=== PATIENT | female | born 1980 | race Caucasian/White ===

== ENCOUNTER 2017-02-25 12:05 | Emergency (ER) | payer SELFPAY ==
[2017-02-25] VITALS (9 sets, daily range): BP systolic 100–137; BP diastolic 55–77; PULSE 68–125; RESP 14–22; TEMP 98.6; O2SAT 85–100
[2017-02-25] MEDS ORDERED: HALOPERIDOL LACTATE 5 MG/ML AMP ONE (12:11)
[2017-02-25] MEDS ORDERED: MIDAZOLAM HCL 5 MG/ML VIAL (1 ML) ONE (12:11)
[2017-02-25] MEDS ORDERED: GABA300C5 PO (12:20)
[2017-02-25] MEDS ORDERED: GABA600T PO (12:20)
--- NOTE | 2017-02-25 12:43 | PD ---
HPI Chief Complaint: OD/ Ingestion Time Seen by Provider: 12:20 Travel History International Travel<30 days: No Contact w/Intl Traveler<30days: No Traveled to known affect area: No History of Present Illness HPI 37yo F with PMH of schizophrenia and bipolar disorder presents to the ED with bizarre behavior. Pt is combative and stating something about brittney and not really making sense. As per EVAC, pt was with a friend and was at [facility] and has been acting bizarre for 3 days. However, pt's friend is not here or seemed reliable. Pt has no signs of trauma. She is moving all extremities. Pt was a threat to others and herself so versed 4mg and haldol 5mg IV given. Pt immediately placed on athletic monitor and end tidal CO2. Pt actually started answering my questions after getting medication and knows her name, where she is and what year it is. Admits to history of schizophrenia and bipolar. States she did not use any drugs and has no complaints. PFSH Past Medical History Medical History: Unable to Obtain Bipolar Disorder: Yes Schizophrenia: Yes Influenza Vaccination: No (uto) ?: Unknown Past Surgical History Surgical History: Unable to Obtain Social History Alcohol Use: Yes Tobacco Use: Yes Substance Use: Yes Allergies-Medications (Allergen,Severity, Reaction): Coded Allergies: No Known Allergies (Unverified , 02/25/17) Reported Meds & Prescriptions Reported Meds & Active Scripts Active Reported Tegretol (Carbamazepine) 200 Mg Tab Unknown Dose PO BID Gabapentin 600 Mg Tab 600 Mg PO HS Gabapentin 300 Mg Cap 300 Mg PO DAILY Review of Systems Except as stated in HPI: all other systems reviewed are Neg Physical Exam Narrative GENERAL: 37yo F combative. SKIN: Focused skin assessment warm/dry. HEAD: Atraumatic. Normocephalic. EYES: Pupils equal and round at 4mm bilaterally. No scleral icterus. No injection or drainage. ENT: No nasal bleeding or discharge. Mucous membranes pink and moist. NECK: Trachea midline. No JVD. CARDIOVASCULAR: Regular rate and rhythm. No murmur appreciated. RESPIRATORY: No accessory muscle use. Clear to auscultation. Breath sounds equal bilaterally. GASTROINTESTINAL: Abdomen soft, non-tender, nondistended. MUSCULOSKELETAL: No obvious deformities. No clubbing. No cyanosis. No edema. NEUROLOGICAL: Awake and alert. No obvious cranial nerve deficits. Motor grossly within normal limits. Normal speech. PSYCHIATRIC: Inappropriate mood and affect; poor insight and judgment. Data Data Last Documented VS Vital Signs Date Time Temp Pulse Resp B/P (MAP) Pulse Ox O2 Delivery O2 Flow Rate FiO2 02/26/17 02:31 91 18 127/61 (83) 98 02/25/17 18:01 Room Air 02/25/17 13:13 1.00 02/25/17 12:10 98.6 Orders Orders Haloperidol Inj (Haldol Inj) (02/25/17 12:11) Midazolam Inj (Versed Inj) (02/25/17 12:11) Ct Brain W/O Iv Contrast(Rout) (02/25/17 ) Complete Blood Count With Diff (02/25/17 12:20) Basic Metabolic Panel (Bmp) (02/25/17 12:20) Bhcg Screen Qualitative (02/25/17 12:20) Tylenol (Acetaminophen) (02/25/17 12:20) Salicylates (Aspirin) (02/25/17 12:20) Psych Screen (02/25/17 12:20) Drug Screen, Random Urine (02/25/17 12:20) Alcohol (Ethanol) (02/25/17 12:20) Shim Plug Cutter / Telemetry ROSALBA.Q8H (02/25/17 12:43) End Tidal Co2 (Etco2) (02/25/17 ) Haloperidol Inj (Haldol Inj) (02/25/17 13:30) Midazolam Inj (Versed Inj) (02/25/17 13:30) Ed Urine Pregnancytest Poc (02/25/17 14:37) Olanzapine Odt (Zyprexa Zydis Odt) (02/25/17 19:15) Diet Regular Basic (02/26/17 Breakfast) Labs Laboratory Tests Test 02/25/17 12:25 02/25/17 12:30 White Blood Count 9.5 TH/MM3 Red Blood Count 4.28 MIL/MM3 Hemoglobin 13.8 GM/DL Hematocrit 41.5 % Mean Corpuscular Volume 96.8 FL Mean Corpuscular Hemoglobin 32.2 PG Mean Corpuscular Hemoglobin Concent 33.3 % Red Cell Distribution Width 12.9 % Platelet Count 268 TH/MM3 Mean Platelet Volume 9.3 FL Neutrophils (%) (Auto) 79.2 % Lymphocytes (%) (Auto) 11.7 % Monocytes (%) (Auto) 8.1 % Eosinophils (%) (Auto) 0.6 % Basophils (%) (Auto) 0.4 % Neutrophils # (Auto) 7.5 TH/MM3 Lymphocytes # (Auto) 1.1 TH/MM3 Monocytes # (Auto) 0.8 TH/MM3 Eosinophils # (Auto) 0.1 TH/MM3 Basophils # (Auto) 0.0 TH/MM3 CBC Comment DIFF FINAL Differential Comment Blood Urea Nitrogen 5 MG/DL Creatinine 1.18 MG/DL Random Glucose 77 MG/DL Calcium Level 9.2 MG/DL Sodium Level 142 MEQ/L Potassium Level 3.5 MEQ/L Chloride Level 104 MEQ/L Carbon Dioxide Level 23.9 MEQ/L Anion Gap 14 MEQ/L Estimat Glomerular Filtration Rate 51 ML/MIN Beta HCG, Qualitative LESS THAN 1 MIU/ML Salicylates Level 3.3 MG/DL Acetaminophen Level LESS THAN 2.0 MCG/ML Ethyl Alcohol Level LESS THAN 3 MG/DL Urine Opiates Screen NEG Urine Barbiturates Screen NEG Urine Amphetamines Screen NEG Urine Benzodiazepines Screen NEG Urine Cocaine Screen NEG Urine Cannabinoids Screen NEG MDM Medical Decision Making Medical Screen Exam Complete: Yes Emergency Medical Condition: Yes Differential Diagnosis Psychosis vs. manic episode vs. drug induced psychosis Narrative Course 37yo F with bipolar and schizophrenia here initially combative and was subsequently given haldol and versed. Pt placed on athletic monitor after. Pt later became more calm and started answering questions. CT brain negative. Labs reviewed, no leukocytosis. Acetaminophen negative. Alcohol negative. Utox negative. Salicylate 3.3. Pt is medically clear for psych evaluation. At this point, I feel that pt's mood is very labile and given her initial presentation, will Heath Act her for psych evaluation because I think she is a harm to herself. Diagnosis Primary Impression: Bizarre behavior Argenis Nix DO Feb 25, 2017 12:43
[2017-02-25] MEDS ORDERED: TEGR200T PO (12:52)
--- NOTE | 2017-02-25 13:15 | RADRPT ---
EXAM DATE/TIME: 02/25/2017 13:01 [facility] COMPARISON: No previous studies available for comparison. INDICATIONS : Altered mental status, confusion for three days. RADIATION DOSE: 56.77 CTDIvol (mGy) MEDICAL HISTORY : Mental disorders SURGICAL HISTORY : None. ENCOUNTER: Initial ACUITY: 3 days PAIN SCALE: 0/10 LOCATION: cranial TECHNIQUE: Multiple contiguous axial images were obtained of the head. Using automated exposure control and adj ustment of the mA and/or kV according to patient size, radiation dose was kept as low as reasonably a chievable to obtain optimal diagnostic quality images. DICOM format image data is available electro nically for review and comparison. FINDINGS: CEREBRUM: The ventricles are normal for age. No evidence of midline shift, mass lesion, hemorrhage or acute in farction. No extra-axial fluid collections are seen. POSTERIOR FOSSA: The cerebellum and brainstem are intact. The 4th ventricle is midline. The cerebellopontine angle i s unremarkable. EXTRACRANIAL: The visualized portion of the orbits is intact. SKULL: The calvaria is intact. No evidence of skull fracture. CONCLUSION: Negative for acute process. Joselito Hodge MD FACR on February 25, 2017 at 13:13 Board Certified Radiologist. This report was verified electronically.
[2017-02-25 13:28] LABS: AUTOMATED NEUTROPHIL # 7.5 TH/MM3 (1.8-7.7); BASOPHIL % 0.4 % (0.0-2.0); EOSINOPHIL # 0.1 TH/MM3 (0-0.4); EOSINOPHIL % 0.6 % (0.0-4.0); HEMATOCRIT 41.5 % (35.0-46.0); HEMO FLAGS DIFF FINAL; LYMPH % 11.7 % (9.0-44.0); LYMPHOCYTE # 1.1 TH/MM3 (1.0-4.8); MEAN CELL VOLUME 96.8 FL (80.0-100.0); MEAN CORPUSCULAR HEMOGLOBIN 32.2 PG (27.0-34.0); MEAN CORPUSCULAR HGB CONC 33.3 % (32.0-36.0); MONO % 8.1 % (0.0-8.0); NEUT % 79.2 % (16.0-70.0); PLATELET COUNT 268 TH/MM3 (150-450); RED BLOOD COUNT 4.28 MIL/MM3 (4.00-5.30); RED CELL DISTRIBUTION WIDTH 12.9 % (11.6-17.2); WHITE BLOOD COUNT 9.5 TH/MM3 (4.0-11.0)
[2017-02-25] MEDS ORDERED: HALOPERIDOL LACTATE 5 MG/ML AMP IV ONE (13:30)
[2017-02-25] MEDS ORDERED: MIDAZOLAM HCL 2 MG/2 ML VIAL IV PUSH ONE (13:30)
[2017-02-25 14:01] LABS: ACETAMINOPHEN LESS THAN 2.0 MCG/ML (10.0-30.0); ANION GAP 14 MEQ/L (5-15); BHCG SCREEN QUALITATIVE LESS THAN 1 MIU/ML (0-5); BICARBONATE 23.9 MEQ/L (21.0-32.0); BLOOD UREA NITROGEN 5 MG/DL (7-18); CHLORIDE 104 MEQ/L (98-107); GLOMERULAR FILTRATION RATE 51 ML/MIN (>89); POTASSIUM 3.5 MEQ/L (3.5-5.1); SODIUM (NA) 142 MEQ/L (136-145)
[2017-02-25 14:02] LABS: ALCOHOL LESS THAN 3 MG/DL (0-5)
[2017-02-25] MEDS ORDERED: OLANZapine ODT 10 MG TAB PO ONE (19:15)
[2017-02-26 02:31] VITALS: BP 127/61; PULSE 91; RESP 18; O2SAT 98
[2017-02-26 11:14] VITALS: BP 127/61; PULSE 91; RESP 18; O2SAT 98
[2017-02-26] MEDS ORDERED: clonazePAM 1 MG TAB PO ONE (11:15)
--- NOTE | 2017-02-26 11:30 | PD ---
Physical Exam Time Seen by Provider: 11:[address] Goldberg has evaluated this patient and has lifted the Heath act the patient to be discharged home. Data Data Last Documented VS Vital Signs Date Time Temp Pulse Resp B/P (MAP) Pulse Ox O2 Delivery O2 Flow Rate FiO2 02/26/17 11:17 02/26/17 11:14 91 18 98 Room Air 02/25/17 13:13 1.00 02/25/17 12:10 98.6 Orders Orders Haloperidol Inj (Haldol Inj) (02/25/17 12:11) Midazolam Inj (Versed Inj) (02/25/17 12:11) Ct Brain W/O Iv Contrast(Rout) (02/25/17 ) Complete Blood Count With Diff (02/25/17 12:20) Basic Metabolic Panel (Bmp) (02/25/17 12:20) Bhcg Screen Qualitative (02/25/17 12:20) Tylenol (Acetaminophen) (02/25/17 12:20) Salicylates (Aspirin) (02/25/17 12:20) Psych Screen (02/25/17 12:20) Drug Screen, Random Urine (02/25/17 12:20) Alcohol (Ethanol) (02/25/17 12:20) Shot Polisher / Telemetry ROSALBA.Q8H (02/25/17 12:43) End Tidal Co2 (Etco2) (02/25/17 ) Haloperidol Inj (Haldol Inj) (02/25/17 13:30) Midazolam Inj (Versed Inj) (02/25/17 13:30) Ed Urine Pregnancytest Poc (02/25/17 14:37) Olanzapine Odt (Zyprexa Zydis Odt) (02/25/17 19:15) Diet Regular Basic (02/26/17 Breakfast) Diet Regular Basic (02/26/17 Lunch) Clonazepam (Klonopin) (02/26/17 11:15) Labs Laboratory Tests Test 02/25/17 12:25 02/25/17 12:30 White Blood Count 9.5 TH/MM3 Red Blood Count 4.28 MIL/MM3 Hemoglobin 13.8 GM/DL Hematocrit 41.5 % Mean Corpuscular Volume 96.8 FL Mean Corpuscular Hemoglobin 32.2 PG Mean Corpuscular Hemoglobin Concent 33.3 % Red Cell Distribution Width 12.9 % Platelet Count 268 TH/MM3 Mean Platelet Volume 9.3 FL Neutrophils (%) (Auto) 79.2 % Lymphocytes (%) (Auto) 11.7 % Monocytes (%) (Auto) 8.1 % Eosinophils (%) (Auto) 0.6 % Basophils (%) (Auto) 0.4 % Neutrophils # (Auto) 7.5 TH/MM3 Lymphocytes # (Auto) 1.1 TH/MM3 Monocytes # (Auto) 0.8 TH/MM3 Eosinophils # (Auto) 0.1 TH/MM3 Basophils # (Auto) 0.0 TH/MM3 CBC Comment DIFF FINAL Differential Comment Blood Urea Nitrogen 5 MG/DL Creatinine 1.18 MG/DL Random Glucose 77 MG/DL Calcium Level 9.2 MG/DL Sodium Level 142 MEQ/L Potassium Level 3.5 MEQ/L Chloride Level 104 MEQ/L Carbon Dioxide Level 23.9 MEQ/L Anion Gap 14 MEQ/L Estimat Glomerular Filtration Rate 51 ML/MIN Beta HCG, Qualitative LESS THAN 1 MIU/ML Salicylates Level 3.3 MG/DL Acetaminophen Level LESS THAN 2.0 MCG/ML Ethyl Alcohol Level LESS THAN 3 MG/DL Urine Opiates Screen NEG Urine Barbiturates Screen NEG Urine Amphetamines Screen NEG Urine Benzodiazepines Screen NEG Urine Cocaine Screen NEG Urine Cannabinoids Screen NEG MDM Supervised Visit with KRIS: No Narrative Course Dr. Goldberg has evaluated this patient and has lifted the Heath act the patient to be discharged home. This patient has contracted safety and denies homicidal or suicidal ideations at this time. She'll be discharged home with follow-up in [facility] where she lives. Her boyfriend is coming to pick her up and has said that he will make sure she follows up. She has friends and family for support. Patient is medically stable for discharge. Diagnosis Primary Impression: Bizarre behavior Referrals: Primary Care Physician Psychiatrist Patient Instructions: General Instructions, Mood Disorders (ED) Additional Instruction: Contract safety to your self and others Follow-up with psychiatry Follow-up with primary care provider Follow-up with Jonathan Ta Return to the emergency department immediately with worsening of symptoms Med/Other Pt SpecificInfo: No Change to Meds, No Meds Exist/No RX given Disposition: DISCHARGE HOME Condition: Stable Maria Guadalupe Bill Feb 26, 2017 11:30
[2017-02-26 12:37] VITALS: BP 116/58; PULSE 65; RESP 16; O2SAT 96
--- NOTE | 2017-02-26 14:26 | PD ---
History of Present Illness Chief Complaint: OD/ Ingestion Time Seen by Provider: 11:00 Travel History International Travel<30 Days: No Contact w/Intl Traveler<30days: No Known affected area: No Legal Status Legal Status: Heath Act Heath Act Signed By: Signed by ER Provider, Dr.Annie Dinah MD. Heath Act Comment: Signed by ER Provider, Dr.Annie Dinah MD. History of Present Illness: 37-year-old female Kumar acted for bizarre behavior. Patient apparently was in public when she had a "meltdown". However, she received Haldol and Versed after being bizarre and aggressive in the emergency department. This calmed her down and she was able to make more sense. At the time of this interview, the patient was fairly calm, pleasant and cooperative. She describes a history of bipolar disorder. She states she has been off her medicines of Tegretol and Neurontin. She has been driving back and forth with her boyfriend, between [place] and [place]. She denies any suicidal or homicidal ideation, plan or intent. She is not currently exhibiting any psychotic symptoms and her cognition is intact. She is verbally gre for safety and she is safe to do so. This physician is prescribing Klonopin 1 mg as a now dose to help her maintain her stability. Boyfriend is driving down to [place] to pick her up. [facility] Past Medical History Medical History: Unable to Obtain Bipolar Disorder: Yes Schizophrenia: Yes Influenza Vaccination: No (uto) ?: Unknown Past Surgical History Surgical History: Unable to Obtain Psychiatric History Psychiatric History Hx Psychiatric Treatment: She stated that she is currently being treated for mental health [facility] in [place], [place]. She stated that her meds are prescribed by a . She stated that she has been admitted to inpatient in [place], [place]. She stated that she "blacks out" during these periods and so has little memory. She stated that she is admitted and sometimes drugs are involved. History of Inpatient Treatment: Yes Guns or firearms in home: No Social History Hx Alcohol Use: Yes Hx Tobacco Use: Yes Hx Substance Use: Yes (Hx - maintains is sober past approx 7 mons. ) Substance Use Type: Nicotine/Cigarettes Hx of Substance Use Treatment: Yes Allergies-Medications (Allergen,Severity, Reaction): Coded Allergies: No Known Allergies (Unverified , 02/25/17) Reported Meds & Prescriptions Reported Meds & Active Scripts Active Reported Tegretol (Carbamazepine) 200 Mg Tab Unknown Dose PO BID Gabapentin 600 Mg Tab 600 Mg PO HS Gabapentin 300 Mg Cap 300 Mg PO DAILY Review of Systems Except as stated in HPI: all other systems reviewed are Neg Exam Alert: Yes [place]: Person, Place, Date, Situation Mood: Calm Affect: Appropriate Speech: Clear, Fast Eye Contact: Normal Memory Intact: Immediate, Recent, Remote Insight/Judgement Adequate MDM Medical Decision Making Medical Record Reviewed: Yes Assessment/Plan 37-year-old female with history of bipolar disorder, appears to be in partial remission. Patient is showing some signs of jhoana but she is not psychotic or suicidal or homicidal. She is willing to accept treatment on an outpatient basis. Her boyfriend is willing to come and care for her. Therefore, least restrictive alternative applies. Patient is being given Klonopin 1 mg 4 treatment of her manic sx. Orders Orders Ed Urine Pregnancytest Poc (02/25/17 14:37) Olanzapine Odt (Zyprexa Zydis Odt) (02/25/17 19:15) Diet Regular Basic (02/26/17 Breakfast) Diet Regular Basic (02/26/17 Lunch) Clonazepam (Klonopin) (02/26/17 11:15) Diet Regular Basic (02/26/17 Dinner) Results Vital Signs Date Time Temp Pulse Resp B/P (MAP) Pulse Ox O2 Delivery O2 Flow Rate FiO2 02/26/17 12:37 65 16 116/58 (77) 96 Room Air 02/26/17 11:17 02/26/17 11:14 91 18 127/61 (83) 98 Room Air 02/26/17 02:31 91 18 127/61 (83) 98 02/25/17 22:03 91 18 124/73 (90) 99 02/25/17 18:01 80 18 137/74 (95) 100 Room Air 02/25/17 17:50 80 18 137/74 (95) 99 Room Air 02/25/17 14:29 85 16 108/60 (76) 100 Room Air Diagnosis Primary Impression: Bipolar disorder in partial remission Referrals: Primary Care Physician Psychiatrist Departure Forms: Tests/Procedures Patient Instructions: General Instructions, Mood Disorders (ED), Medical Clearance for Psychiatric Care (ED) Additional Instructions: DX: Contract safety to your self and others Follow-up with psychiatry Follow-up with primary care provider Follow-up with Jonathan Ta Return to the emergency department immediately with worsening of symptoms Disposition: 01 DISCHARGE HOME Condition: Stable Keegan Goldberg MD Feb 26, 2017 14:26
== END 2017-02-26 18:30 | disposition home or self-care (01) ==
LOC: NEPC 12:05 → NEPJ 02-26 18:30
DX: F31.9 Bipolar disorder, unspecified (principal); F20.9 Schizophrenia, unspecified; F17.210 Nicotine dependence, cigarettes, uncomplicated; Z79.899 Other long term (current) drug therapy
CPT/HCPCS: 70450; 80048; 80307; 84703; 85025; 96374; 96375; 99285; J1630; J2250